=== PATIENT | female | born 1950 | race Caucasian/White ===

== ENCOUNTER 2021-03-21 17:38 | Emergency (ER) | payer MEDICAID ==
[~2021-03-21] VITALS: Ht 149.9 cm; Wt 45.8 kg
--- NOTE | 2021-03-21 17:46 | NUR ---
NAME CALLED OUT TO LOBBY, NO ANSWER
[2021-03-21 17:51] VITALS: BP 112/68
--- NOTE | 2021-03-21 18:20 | NUR ---
RECEIVED 70 Y/O FEMALE WHO IS C/O VERTIGO X 4DAYS, PATIENT TAKING MECLIZINE AT HOME QID WITH NO RELIEF. PT IS HAVING NAUSEA BUT NO VOMITING. DENIES MEDICAL HISTORY OR ALLERGIES.. AMBULATED IN WITH UPRIGHT STEADY GAIT. ASSISTED TO BED, PLACED IN LOW LOCKED POSITION, ADMINISTRATIVE STAFF SUPERVISOR PLACED FOR OBSERVATION, SHOWING NORMAL SINUS RHYTHM WITH NO NOTED ECTOPY. RESP IS EVEN AND UNLABORED, SKIN SIGNS ARE WARM AND DRY. REPORTS NO FALLS
--- NOTE | 2021-03-21 18:30 | NUR ---
DR GUNTER AT BEDSIDE FOR EXAM AND EVAL LABS AND URINE ORDERED.
--- NOTE | 2021-03-21 18:43 | NUR ---
MANAGER COMPENSATION AT BEDSIDE, DRAWING.
--- NOTE | 2021-03-21 18:47 | NUR ---
DR GUNTER AT BEDSIDE FOR FUTHER EVAL.
--- NOTE | 2021-03-21 18:51 | NUR ---
AMBULATED WITH ASSIST, UPRIGHT STEADY. TO BR TO COLLECT SAMPLE WITH ASSIST.
[2021-03-21 18:54] LABS: BASOPHILS % (AUTO) 0.8 % (0.0-2.0); EOSINOPHILS # (AUTO) 0.1 K/uL (0-0.4); EOSINOPHILS % (AUTO) 2.3 % (0.0-4.0); HEMATOCRIT 39.4 % (36-48); HEMOGLOBIN 13.3 g/dL (12.0-16.0); LYMPHOCYTES # (AUTO) 1.3 K/uL (2.5-16.5); LYMPHOCYTES % (AUTO) 24.5 % (20.5-51.1); MEAN CORPUSCULAR HEMOGLOBIN 30 pg (27-31); MEAN CORPUSCULAR HGB CONC 34 g/dL (33-37); MEAN CORPUSCULAR VOLUME 88.8 fL (80-94); MONOCYTES # (AUTO) 0.7 K/uL (0.8-1.0); MONOCYTES % (AUTO) 12.4 % (1.7-9.3); NEUTROPHILS # (AUTO) 3.3 K/uL (1.8-7.7); PLATELET COUNT (AUTO) 236 K/uL (140-450); RED BLOOD CELL COUNT(AUTO) 4.44 MIL/uL (4.20-5.40); RED CELL DISTRIBUTION WIDTH 14.6 % (11.6-13.7); WHITE BLOOD COUNT (AUTO) 5.5 K/uL (4.8-10.8)
[2021-03-21 19:10] LABS: ANION GAP 10.3 (8-16); CARBON DIOXIDE 29.8 mmol/L (21-32); CHLORIDE 107 mmol/L (98-107); CREATININE 0.7 mg/dL (0.6-1.3); GLUCOSE 122 mg/dL (74-106); POTASSIUM 4.1 mmol/L (3.5-5.1); SODIUM SERUM 143 mmol/L (136-145); UREA NITROGEN, BLOOD 13 mg/dL (7-18)
--- NOTE | 2021-03-21 19:20 | NUR ---
RECEIVED REPORT FROM DAVEY MARTINI, TRANSFER OF CARE AT THIS TIME
--- NOTE | 2021-03-21 19:22 | NUR ---
CARE ENDORSED TO LISA MARTINI, REPORT PROVIDED.
--- NOTE | 2021-03-21 20:21 | NUR ---
PT RETURN FROM CT
[2021-03-21 22:20] VITALS: BP 141/72
--- NOTE | 2021-03-21 22:20 | NUR ---
Patient discharged with v/s stable. Written and verbal after care instructions given and explained. Patient verbalized understanding. Ambulatory with steady gait. All questions addressed prior to discharge. Advised to follow up with PMD.
== END 2021-03-21 22:20 | disposition home or self-care (01) ==
LOC: MED 17:38
DX: R42 Dizziness and giddiness (principal); R11.0 Nausea
CPT/HCPCS: 36415; 70450; 70496; 70498; 80048; 85025; 99285; Q9967

== ENCOUNTER 2022-09-18 16:27 | Emergency (ER) | payer MEDICAID ==
[~2022-09-18] VITALS: Ht 147.3 cm; Wt 49.0 kg
[2022-09-18 16:39] VITALS: BP 154/75
--- NOTE | 2022-09-18 16:39 | NUR ---
patient ambulated to bed 8
--- NOTE | 2022-09-18 16:55 | NUR ---
71 y/o female bib self with c/o pulsating headache to the left side of her head x 3 days. Per patient the last time she had this headache she had COVID. Patient tested negative for COVID today. Patient reports blurry vision and nausea. Patient denies any fever, chills or SOB. Patient has been medicating at home. Medical History: HTN, Vertigo, Arthritis NKDA
--- NOTE | 2022-09-18 17:33 | NUR ---
Patient is laying in bed, respirations even and unlabored. All needs met by staff.
[2022-09-18] MEDS ORDERED: ACETAMINOPHEN EXTRA STRENGTH 500 MG TAB PO ONE (18:00)
[2022-09-18 18:20] LABS: BASOPHILS % (AUTO) 0.8 % (0.0-2.0); EOSINOPHILS # (AUTO) 0.1 K/uL (0-0.4); EOSINOPHILS % (AUTO) 1.3 % (0.0-4.0); HEMATOCRIT 38.1 % (36-48); HEMOGLOBIN 12.8 g/dL (12.0-16.0); LYMPHOCYTES % (AUTO) 17.2 % (20.5-51.1); MEAN CORPUSCULAR HEMOGLOBIN 30 pg (27-31); MEAN CORPUSCULAR HGB CONC 34 g/dL (33-37); MEAN CORPUSCULAR VOLUME 88.3 fL (80-94); MONOCYTES # (AUTO) 0.6 K/uL (0.8-1.0); MONOCYTES % (AUTO) 10.1 % (1.7-9.3); NEUTROPHILS # (AUTO) 4.2 K/uL (1.8-7.7); NEUTROPHILS % (AUTO) 70.6 % (42.2-75.2); PLATELET COUNT (AUTO) 233 K/uL (140-450); RED BLOOD CELL COUNT(AUTO) 4.31 MIL/uL (4.20-5.40)
[2022-09-18 18:39] LABS: ALBUMIN 4.3 g/dL (3.4-5.0); ANION GAP 11.9 (8-16); ASPARTATE AMINOTRANSFERASE 19 U/L (15-37); CARBON DIOXIDE 29.5 mmol/L (21-32); CHLORIDE 106 mmol/L (98-107); CREATININE 1.2 mg/dL (0.6-1.3); GLUCOSE 136 mg/dL (74-106); POTASSIUM 4.4 mmol/L (3.5-5.1); SODIUM SERUM 143 mmol/L (136-145); TOTAL BILIRUBIN 0.3 mg/dL (0.0-1.0); UREA NITROGEN, BLOOD 12 mg/dL (7-18)
--- NOTE | 2022-09-18 19:20 | NUR ---
Report given to VINI Chiu for transfer of care.
--- NOTE | 2022-09-18 19:20 | NUR ---
Assumed care of patient at change of shift. Introduced self to patient, positioned for comfort. patient c/o h/a 01/31 but pain decreased after being medicated earlier in the dayshift. No neuro focal deficits noted. Patient ambulated w/ steady gait. Bed to low position sr up. continue to monitor.
[2022-09-18] MEDS ORDERED: ACET-10509 PO (19:29)
[2022-09-18 20:12] VITALS: BP 113/63
--- NOTE | 2022-09-18 20:12 | NUR ---
Patient ok to d/c home given aci and rx verbalized understanding of f/u care and taking of rx medications.
== END 2022-09-18 20:10 | disposition home or self-care (01) ==
LOC: MED 16:27
DX: G44.209 Tension-type headache, unspecified, not intractable (principal); Z20.822 Contact with and (suspected) exposure to COVID-19; I10 Essential (primary) hypertension; Z79.899 Other long term (current) drug therapy
CPT/HCPCS: 36415; 70450; 80053; 85025; 93005; 99285

== ENCOUNTER 2023-05-10 15:50 | Emergency (ER) | payer MEDICAID ==
[~2023-05-10] VITALS: Ht 132.1 cm; Wt 46.7 kg
[~2023-05-10 15:50] MED LIST: ACET-10509 PO
[2023-05-10 16:16] VITALS: BP 155/79; PULSE 76; RESP 16; TEMP 99.1; O2SAT 97
[2023-05-10 17:42] VITALS: TEMP 98.1
[2023-05-10 18:40] LABS: BASOPHILS % (AUTO) 0.6 % (0.0-2.0); EOSINOPHILS # (AUTO) 0.1 K/uL (0-0.4); HEMATOCRIT 40.8 % (36-48); HEMOGLOBIN 13.8 g/dL (12.0-16.0); LYMPHOCYTES # (AUTO) 1.3 K/uL (2.5-16.5); LYMPHOCYTES % (AUTO) 20.2 % (20.5-51.1); MEAN CORPUSCULAR HEMOGLOBIN 30 pg (27-31); MEAN CORPUSCULAR HGB CONC 34 g/dL (33-37); MEAN CORPUSCULAR VOLUME 88.2 fL (80-94); MONOCYTES # (AUTO) 0.7 K/uL (0.8-1.0); MONOCYTES % (AUTO) 10.5 % (1.7-9.3); NEUTROPHILS # (AUTO) 4.5 K/uL (1.8-7.7); NEUTROPHILS % (AUTO) 67.7 % (42.2-75.2); PLATELET COUNT (AUTO) 248 K/uL (140-450); RED BLOOD CELL COUNT(AUTO) 4.63 MIL/uL (4.20-5.40); RED CELL DISTRIBUTION WIDTH 13.9 % (11.6-13.7); WHITE BLOOD COUNT (AUTO) 6.6 K/uL (4.8-10.8)
[2023-05-10 19:00] LABS: ALANINE AMINOTRANSFERASE 26 U/L (12-78); ALKALINE PHOSPHATASE 81 U/L (50-136); ANION GAP 10.1 (8-16); ASPARTATE AMINOTRANSFERASE 20 U/L (15-37); CALCIUM 10.3 mg/dL (8.5-10.1); CARBON DIOXIDE 32.1 mmol/L (21-32); CHLORIDE 104 mmol/L (98-107); CREATININE 0.7 mg/dL (0.6-1.3); GLUCOSE 105 mg/dL (74-106); POTASSIUM 4.2 mmol/L (3.5-5.1); SODIUM SERUM 142 mmol/L (136-145); TOTAL BILIRUBIN 0.3 mg/dL (0.0-1.0); TOTAL PROTEIN, SERUM 7.6 g/dL (6.4-8.2); UREA NITROGEN, BLOOD 13 mg/dL (7-18)
[2023-05-10 19:54] LABS: INR 0.95 (0.8-1.2); PARTIAL THROMBOPLASTIN TIME 28.8 secs (22-35.6)
[2023-05-10] MEDS ORDERED: ACET-10509 PO (21:30)
[2023-05-10] MEDS ORDERED: KETOROLAC 30 MG/ML VIAL IVP ONE (21:35)
[2023-05-10] MEDS ORDERED: LIDOCAINE 5% 1 EA PATCH TP ONE (21:35)
[2023-05-10] MEDS ORDERED: MORPHINE SULFATE 4 MG/ML SYR IVP ONE (21:35)
[2023-05-10] MEDS ORDERED: LID5T TP (22:21)
[2023-05-10 23:10] VITALS: BP 146/72; PULSE 69; RESP 18; O2SAT 97
== END 2023-05-10 23:10 | disposition home or self-care (01) ==
LOC: MED 15:50
DX: R07.9 Chest pain, unspecified (principal); M25.511 Pain in right shoulder; I10 Essential (primary) hypertension; Z79.899 Other long term (current) drug therapy
CPT/HCPCS: 36415; 71045; 73030; 80053; 83880; 84484; 85025; 85610; 85730; 93005; 96374; 99285; J1885; J2270

== ENCOUNTER 2024-01-28 23:40 | Emergency (ER) | payer MEDICAID ==
[~2024-01-28] VITALS: Ht 147.3 cm; Wt 61.2 kg
[~2024-01-28 23:40] MED LIST changes: +LID5T TP
[2024-01-29 00:11] VITALS: BP 157/66; PULSE 67; RESP 16; TEMP 96.7; O2SAT 99
[2024-01-29 01:20] VITALS: BP 157/66; PULSE 67; RESP 16; TEMP 96.7; O2SAT 99
== END 2024-01-29 01:20 | disposition left against medical advice (07) ==
LOC: MED 23:40
DX: R11.10 Vomiting, unspecified (principal); Z53.21 Procedure and treatment not carried out due to patient leaving prior to being seen by health care provider